=== PATIENT | male | born 1955 | race Caucasian/White ===

== ENCOUNTER 2016-08-19 20:23 | Emergency (ER) | payer OTHER ==
[2016-08-19 20:55] VITALS: BP 122/71
[2016-08-19] MEDS ORDERED: DOXYcycline CAP(*) 100 MG PO ONE (21:39)
--- NOTE | 2016-08-19 21:56 | UC ---
Skin Complaint HPI - HPI Summary HPI Summary: 60 yo male removed tick from his abd today thinks it was attached ,18 hr but not sure burned it with a match then grabbed it with a pair of needle nose pilers - History of Current Complaint Chief Complaint: UCSkin Time Seen by Provider: 08/19/16 21:28 Stated Complaint: TICK Hx Obtained From: Patient Onset/Duration: Sudden Onset Skin Exposure Onset/Duration: Hours Ago Timing: Constant Onset Severity: Mild Current Severity: Mild Pain Intensity: 1 Pain Scale Used: 0-10 Numeric Location: Other - abd Character: Redness Aggravating: Touch - Allergy/Home Medications Allergies/Adverse Reactions: Allergies Allergy/AdvReac Type Severity Reaction Status Date / Time Statins Allergy Muscle Ache Verified 08/19/16 20:54 Home Medications: Home Medications NK [No Home Medications Reported] 08/19/16 [History Confirmed 08/19/16] Review of Systems Constitutional: Negative Skin: Negative Eyes: Negative ENT: Negative Respiratory: Negative Cardiovascular: Negative Gastrointestinal: Negative Genitourinary: Negative Motor: Negative Neurovascular: Negative Musculoskeletal: Negative Neurological: Negative Psychological: Negative All Other Systems Reviewed And Are Negative: Yes PMH/Surg Hx/FS Hx/Imm Hx Previously Healthy: Yes - JAZZ - Surgical History Surgical History: Yes Surgery Procedure, Year, and Place: BILATERAL KNEES-OSTEOCHONDRITIS. MOLES REMOVED. HEART STENTS 2004-[facility] 1.5 OR 3T-INFO IN MRI FOLDER - Family History Known Family History: Positive: Cardiac Disease, Hypertension, Diabetes - Social History Alcohol Use: Occasionally Substance Use Type: None Smoking Status (MU): Never Smoked Tobacco Physical Exam Triage Information Reviewed: Yes Appearance: Well-Appearing, No Pain Distress, Well-Nourished Vital Signs: Initial Vital Signs Temp 97.9 F 08/19/16 20:54 Pulse 72 08/19/16 20:54 Resp 12 08/19/16 20:54 BP 122/71 08/19/16 20:54 Pulse Ox 100 08/19/16 20:54 Vital Signs Reviewed: Yes Eyes: Positive: Conjunctiva Clear ENT: Positive: Hearing grossly normal. Negative: Nasal congestion, Nasal drainage, Trismus, Muffled/hoarse voice Neck: Positive: Supple, Nontender Respiratory: Positive: Lungs clear, Normal breath sounds, No respiratory distress Cardiovascular: Positive: RRR, No Murmur Neurological: Positive: Alert Psychological Exam: Normal Skin Exam: Other - redness around tick bite due to traumatic removal Course/Dx - Diagnoses Provider Diagnoses: tick bite. lyme diseases prophylaxis Discharge - Discharge Plan Condition: Good Disposition: HOME Patient Education Materials: Tick Bite (ED) Referrals: Emmanuel Rodriguez MD [Primary Care Provider] - Additional Instructions: take two doxy with food tonight there is a part of a tick mandible left imbedded it will work it's way out in a few weeks I think tick twisters do the best job of removing ticks intact
== END 2016-08-19 22:05 | disposition home or self-care (01) ==
LOC: UCEAST 20:23
DX: S30.861A Insect bite (nonvenomous) of abdominal wall, initial encounter (principal); W57.XXXA Bitten or stung by nonvenomous insect and other nonvenomous arthropods, initial encounter
CPT/HCPCS: 99212; A9270-GY; G0463

== ENCOUNTER 2018-04-05 04:47 | Emergency (ER) | payer BC, OTHER ==
[2018-04-05] MEDS ORDERED: oxyCODONE/Acetamin 5/325 MG* TAB PO ONE (05:11)
--- NOTE | 2018-04-05 05:15 | ED ---
Back Pain - HPI Summary HPI Summary: Pt is a 62 y/o M presenting to the ED with a chief complaint of lower back pain onset about a few weeks ago. The pt is a cuello, he lifts heavy things daily, does yoga, jeniffer chi, and elliptical, and it has been ok, but came in tonight because the pain was at a 9/10. The pt reports trouble walking. The pt denies pain in legs or feet, bladder or bowel issues, numbness or tingling, or any hx of cancer or diabetes. The pt has a hx of two cardiac stents, sleep apnea treated with a CPAP. - History of Current Complaint Chief Complaint: EDBackInjuryPain Stated Complaint: LOWER BACK PAIN Time Seen by Provider: 04/05/18 04:52 Hx Obtained From: Patient Onset/Duration: Gradual Onset, Lasting Weeks, Still Present Onset/Duration: Started Weeks Ago, Still Present, Worse Since - past couple of days Timing: Constant Back Pain Location: Is Discrete @ - lower back Severity Initially: Moderate Severity Currently: Severe Pain Intensity: 9 Pain Scale Used: 0-10 Numeric Character: Aching Aggravating Symptom(s): Movement, Lifting, Bending, Walking Alleviating Symptom(s): Rest Associated Signs And Symptoms: Positive: Pain with Weight Bearing. Negative: Numbness, Tingling, Bladder Incontinence, Bowel Incontinence - Allergies/Home Medications Allergies/Adverse Reactions: Allergies Allergy/AdvReac Type Severity Reaction Status Date / Time Iakqiqa-[id number]-Ilj Reductase Allergy Muscle Ache Verified 04/05/18 04:55 Inhibitor PMH/Surg Hx/FS Hx/Imm Hx Previously Healthy: Yes Endocrine/Hematology History: Denies: Hx Diabetes Cardiovascular History: Reports: Other Cardiovascular Problems/Disorders - two cardiac stents Denies: Hx Hypertension, Hx Pacemaker/ICD History: Denies: Hx Renal Disease Sensory History: Denies: Hx Hearing Aid Psychiatric History: Denies: Hx Panic Disorder - Surgical History Surgery Procedure, Year, and Place: BILATERAL KNEES-OSTEOCHONDRITIS. MOLES REMOVED. [facility]-INFO IN MRI FOLDER Infectious Disease History: No Infectious Disease History: Denies: Traveled Outside the [place] in Last 30 Days - Family History Known Family History: Positive: Cardiac Disease, Hypertension, Diabetes - Social History Alcohol Use: Occasionally Substance Use Type: Reports: None Smoking Status (MU): Never Smoked Tobacco Review of Systems Negative: Fever Positive: no symptoms reported Positive: Myalgia. Negative: Decreased ROM Positive: Weakness. Negative: Numbness All Other Systems Reviewed And Are Negative: Yes Physical Exam - Summary Physical Exam Summary: Appearance: Well-appearing, Well-nourished, lying in bed comfortably Skin: Warm, dry, no obvious rash Eyes: sclera anicteric, no conjunctival pallor ENT: mucous membranes moist, pharynx appears normal Neck: Supple, nontender Respiratory: Clear to auscultation, no signs of respiratory distress Cardiovascular: Normal S1, S2. No murmurs. Normal distal pulses in tibial and radial bilaterally. Abdomen: Soft, nontender, normal active bowel sounds present Musculoskeletal: Normal, Strength/ROM Intact, no pain with passive leg raising, reflexes of knee and ankle are symmetric and normal without clonus, no weakness in legs Neurological: A&Ox3, awake and alert, mentation is normal, speech is fluent and appropriate Psychiatric: affect is normal, does not appear anxious or depressed Triage Information Reviewed: Yes Vital Signs On Initial Exam: Initial Vitals Temp Pulse Resp BP Pulse Ox 96.3 F 70 16 176/83 96 04/05/18 04:48 04/05/18 04:48 04/05/18 04:48 04/05/18 04:48 04/05/18 04:48 Vital Signs Reviewed: Yes Diagnostics - Vital Signs Vital Signs Temp Pulse Resp BP Pulse Ox 04/05/18 04:48 96.3 F 70 16 176/83 96 - Laboratory Lab Statement: Any lab studies that have been ordered have been reviewed, and results considered in the medical decision making process. Back Pain Course/Dx - Course Course Of Treatment: Pt is a 62 y/o M presenting to the ED with a chief complaint of lower back pain onset about a few weeks ago. The pt is a cuello, he lifts heavy things daily, does yoga, jeniffer chi, and elliptical, and it has been ok , but came in tonight because the pain was at a 9/10. The pt reports trouble walking. The pt denies pain in legs or feet, bladder or bowel issues, and numbness or tingling. The pt will be sent home with a prescription to manage the pain and instructions to follow up with a primary care physician. - Diagnoses Provider Diagnoses: Low back pain Discharge - Sign-Out/Discharge Documenting (check all that apply): Patient Departure - home - Discharge Plan Condition: Stable Disposition: HOME Prescriptions: oxyCODONE/Acetamin 5/325 MG* [Percocet 5/325 TAB*] 1 tab PO Q4H PRN #20 tab MDD 6 tabs PRN Reason: Pain Patient Education Materials: Back Pain (ED), Lower Back Exercises (ED) Referrals: Emmanuel Rodriguez MD [Primary Care Provider] - - Billing Disposition and Condition Condition: STABLE Disposition: Home - Attestation Statements Document Initiated by Scribe: Yes Documenting Scribe: Andree Thomas Provider For Whom Stevie is Documenting (Include Credential): Carlos Edwards MD. Scribe Attestation: Andree Pulliam scribed for Carlos Edwards MD. on 04/07/18 at 0012. Scribe Documentation Reviewed: Yes Provider Attestation: The documentation as recorded by the mahamedibeAndree accurately reflects the service I personally performed and the decisions made by , Carlos Edwards MD. Status of Scribe Document: Viewed
[2018-04-05 05:23] VITALS: BP 163/94
== END 2018-04-05 05:22 | disposition home or self-care (01) ==
LOC: ED 04:47
DX: M54.5 Low back pain (principal); X58.XXXA Exposure to other specified factors, initial encounter; Y92.9 Unspecified place or not applicable; G47.30 Sleep apnea, unspecified; Z95.818 Presence of other cardiac implants and grafts; M93.962 Osteochondropathy, unspecified, left lower leg; M93.961 Osteochondropathy, unspecified, right lower leg
CPT/HCPCS: 99282; A9270-GY

== ENCOUNTER 2021-08-07 07:22 | Observation (INO) ==
[2021-08-07 08:52] LABS: Hematocrit 44 % (42-52); Hemoglobin 14.9 g/dL (14.0-18.0); Mean Corpuscular HGB Conc 34 g/dL (31-36); Mean Corpuscular Hemoglobin 32 pg (27-31); Mean Corpuscular Volume 93 fL (80-94); Mean Platelet Volume 8.5 fL (7.4-10.4); Platelet Count 164 10^3/uL (150-450); Red Blood Count 4.72 10^6 /uL (4.18-5.48); Red Cell Distribution Width 12 % (10-15); White Blood Count 4.1 10^3/uL (3.5-10.8)
[2021-08-07] MEDS ORDERED: Heparin 1,000 UNIT/ML 10 ml (10,000 UNITS) CATHLAB/DIALYSIS ONE (09:28)
[2021-08-07] MEDS ORDERED: fentaNYL 100 mcg/2 ml 50 MCG/ML VIAL ONE (09:28)
[2021-08-07] MEDS ORDERED: VERAPAMIL 2.5 MG/ML 2 ML VIAL ** 5 mg/2 ml ONE (09:28)
[2021-08-07] MEDS ORDERED: Midazolam 5 mg/5 ml VIAL 1 mg/ml 5 ml VIAL (5 mg) ONE (09:28)
[2021-08-07] MEDS ORDERED: Heparin 2 UNITS/ML 1000 mls 2,000 ML IV ONE (09:29)
[2021-08-07] MEDS ORDERED: nitroGLYCERIN DRIP 25,000 MCG/250 ML BTL ONE (09:29)
[2021-08-07] MEDS ORDERED: Lidocaine 1% MPF 5 ML VIAL ONE (09:29)
[2021-08-07] MEDS ORDERED: Iohexol 350 (CONTRAST) 50 ML SDV IV ONE ×2 (09:30→10:17)
[2021-08-07] MEDS ORDERED: Bivalirudin 250 MG VIAL ONE (10:15)
[2021-08-07] MEDS ORDERED: Al Hydrox/Mg Hydrox/Simet LIQ 30 ML UDC PO PRN (14:31)
[2021-08-07] MEDS ORDERED: Magnesium Hydroxide LIQ 30 ML UDC PO PRN (14:31)
[2021-08-07 15:23] LABS: ABS Eosinophils 0.1 10^3/ul (0-0.6); ABS Lymphocytes 1.7 10^3/ul (1.0-4.8); ABS Monocytes 0.6 10^3/ul (0-0.8); Eosinophil % 1.3 %; Hematocrit 47 % (42-52); Hemoglobin 15.8 g/dL (14.0-18.0); Mean Corpuscular HGB Conc 34 g/dL (31-36); Mean Corpuscular Hemoglobin 32 pg (27-31); Mean Corpuscular Volume 93 fL (80-94); Mean Platelet Volume 8.7 fL (7.4-10.4); Nucleated Red Blood Cells % 0.1; Platelet Count 175 10^3/uL (150-450); Red Blood Count 4.98 10^6 /uL (4.18-5.48); Red Cell Distribution Width 13 % (10-15); White Blood Count 5.4 10^3/uL (3.5-10.8)
[2021-08-07] MEDS: NS 0.9% 1000 ml BAG 1,000 ML IV SCH (15:27)
[2021-08-07 15:50] LABS: Calcium 9.3 mg/dL (8.6-10.3); Potassium 3.8 mmol/L (3.5-5.0)
[2021-08-08] MEDS: NS 0.9% 1000 ml BAG 1,000 ML IV SCH (01:43)
[2021-08-08] MEDS ORDERED: Aspirin EC 81 mg TAB.EC (enteric coated) PO SCH (09:00)
[2021-08-08 14:30] VITALS: BP 136/73
== END 2021-08-08 13:00 | disposition short-term general hospital (02) ==
LOC: CHICATH 07:22 → MEDTELE 14:19 → INTOOBSV 14:19
PROVIDERS: ADMIT Internal Medicine